=== PATIENT | male | born 1990 | race African-American/Black ===

== ENCOUNTER 2018-03-14 16:20 | Emergency (ER) | payer OTHER ==
[~2018-03-14] VITALS: Ht 175.3 cm; Wt 90.3 kg
[~2018-03-14 16:20] MED LIST: ORASEP SPRAY30 ML MM
== END 2018-03-14 19:22 | disposition home or self-care (01) ==
LOC: ER 16:20
DX: R51 Headache (principal)

== ENCOUNTER → 2018-04-14 | Emergency (ER) | payer OTHER ==
[~2018-04-14] VITALS: Ht 175.3 cm; Wt 86.2 kg
[~2018-04-14] MED LIST changes: +ZESTRIL5 MG PO
== END | disposition home or self-care (01) ==
LOC: ER 11:58
DX: I16.0 Hypertensive urgency (principal); I10 Essential (primary) hypertension

== ENCOUNTER → 2018-05-03 | Emergency (ER) | payer OTHER ==
[~2018-05-03] VITALS: Ht 175.3 cm; Wt 86.2 kg
== END | disposition home or self-care (01) ==
LOC: ER 06:30
DX: M25.512 Pain in left shoulder (principal); M62.838 Other muscle spasm

== ENCOUNTER 2018-05-28 02:01 | Emergency (ER) | payer OTHER ==
[~2018-05-28] VITALS: Ht 175.3 cm; Wt 81.6 kg
[2018-05-28] MEDS ORDERED: INTESTINEX680 M1 PO (12:10)
== END 2018-05-28 13:26 | disposition home or self-care (01) ==
LOC: ER 02:01
DX: K52.9 Noninfective gastroenteritis and colitis, unspecified (principal)

== ENCOUNTER 2018-06-22 19:53 | Emergency (ER) | payer OTHER ==
[~2018-06-22] VITALS: Ht 172.7 cm; Wt 77.1 kg
[~2018-06-22 19:53] MED LIST changes: +INTESTINEX680 M1 PO
== END 2018-06-22 21:53 | disposition home or self-care (01) ==
LOC: ER 19:53
DX: R51 Headache (principal); B34.9 Viral infection, unspecified

== ENCOUNTER 2018-07-25 12:55 | Emergency (ER) | payer OTHER ==
[~2018-07-25] VITALS: Ht 172.7 cm; Wt 74.4 kg
[2018-07-25] MEDS ORDERED: NORFLEX100MG PO (16:28)
[2018-07-25] MEDS ORDERED: KETO10TA2 PO (16:28)
== END 2018-07-25 18:52 | disposition home or self-care (01) ==
LOC: ER 12:55
DX: M54.5 Low back pain (principal)

== ENCOUNTER 2019-03-14 10:14 | Emergency (ER) | payer OTHER ==
[~2019-03-14] VITALS: Ht 175.3 cm; Wt 71.2 kg
[~2019-03-14 10:14] MED LIST changes: +KETO10TA2 PO; +NORFLEX100MG PO
== END 2019-03-14 12:15 | disposition home or self-care (01) ==
LOC: ER 10:14
DX: G44.209 Tension-type headache, unspecified, not intractable (principal)

== ENCOUNTER 2019-04-08 18:08 | Emergency (ER) | payer OTHER ==
[~2019-04-08] VITALS: Ht 175.3 cm; Wt 71.2 kg
== END 2019-04-08 20:20 | disposition home or self-care (01) ==
LOC: ER 18:08
DX: B33.8 Other specified viral diseases (principal); B96.0 Mycoplasma pneumoniae [M. pneumoniae] as the cause of diseases classified elsewhere

== ENCOUNTER → 2019-06-01 | Emergency (ER) | payer OTHER ==
[~2019-06-01] VITALS: Ht 175.3 cm; Wt 72.6 kg
== END | disposition home or self-care (01) ==
LOC: ER 21:13
DX: S52.592A Other fractures of lower end of left radius, initial encounter for closed fracture (principal); W18.39XA Other fall on same level, initial encounter; Y93.67 Activity, basketball; Y92.310 Basketball court as the place of occurrence of the external cause; Y99.8 Other external cause status

== ENCOUNTER 2020-02-07 10:38 | Emergency (ER) | payer OTHER ==
[~2020-02-07] VITALS: Ht 175.3 cm; Wt 76.2 kg
[2020-02-07] MEDS ORDERED: DICLOFENAC SODI75 MG PO (11:31)
== END 2020-02-07 11:41 | disposition home or self-care (01) ==
LOC: ER 10:38
DX: M77.12 Lateral epicondylitis, left elbow (principal)

== ENCOUNTER 2020-07-05 09:23 | Emergency (ER) | payer OTHER ==
[~2020-07-05] VITALS: Ht 175.3 cm; Wt 81.6 kg
[~2020-07-05 09:23] MED LIST changes: +DICLOFENAC SODI75 MG PO
[2020-07-05] MEDS ORDERED: KETO10TA2 PO (13:20)
[2020-07-05] MEDS ORDERED: MIRALAX510 GM PO (13:20)
== END 2020-07-05 13:27 | disposition home or self-care (01) ==
LOC: ER 09:23
DX: K59.09 Other constipation (principal); R10.31 Right lower quadrant pain; M54.5 Low back pain

== ENCOUNTER 2020-08-12 09:09 | Emergency (ER) | payer OTHER ==
[~2020-08-12] VITALS: Ht 175.3 cm; Wt 81.6 kg
[~2020-08-12 09:09] MED LIST changes: +MIRALAX510 GM PO
[2020-08-12] MEDS ORDERED: LOSARTAN POTASS25 MG PO (13:12)
== END 2020-08-12 13:15 | disposition home or self-care (01) ==
LOC: ER 09:09
DX: R07.89 Other chest pain (principal); I10 Essential (primary) hypertension

== ENCOUNTER 2020-11-13 11:19 | Emergency (ER) | payer OTHER ==
[~2020-11-13] VITALS: Ht 175.3 cm; Wt 88.5 kg
[~2020-11-13 11:19] MED LIST changes: +LOSARTAN POTASS25 MG PO
== END 2020-11-13 17:16 | disposition home or self-care (01) ==
LOC: ER 11:19
DX: K62.5 Hemorrhage of anus and rectum (principal)

== ENCOUNTER 2021-02-27 07:30 | Outpatient (CLI) | payer OTHER | END 2021-02-27 07:44 | disposition home or self-care (01) | LOC: TOM 07:30 | PROVIDERS: ATTEND Internal Medicine Gastroenterology | DX: K62.89 Other specified diseases of anus and rectum (principal); Z12.11 Encounter for screening for malignant neoplasm of colon ==

== ENCOUNTER → 2021-04-21 | Emergency (ER) | payer OTHER ==
[~2021-04-21] VITALS: Ht 175.3 cm; Wt 86.2 kg
== END | disposition left against medical advice (07) ==
LOC: ER 00:56
DX: Z53.21 Procedure and treatment not carried out due to patient leaving prior to being seen by health care provider (principal)

== ENCOUNTER → 2021-04-21 | Emergency (ER) | payer OTHER | END | disposition left against medical advice (07) | LOC: ER 06:42 | DX: Z53.21 Procedure and treatment not carried out due to patient leaving prior to being seen by health care provider (principal) ==

== ENCOUNTER 2021-09-11 12:30 | Emergency (ER) | payer OTHER ==
[~2021-09-11] VITALS: Ht 175.3 cm; Wt 89.8 kg
[2021-09-11] MEDS ORDERED: PEPCID AC20 MG PO (16:38)
[2021-09-11] MEDS ORDERED: CIPRO500 MG PO (16:38)
[2021-09-11] MEDS ORDERED: METRONIDAZOLE500 MG PO (16:38)
[2021-09-11] MEDS ORDERED: LEVSIN0.125 MG PO (16:38)
[2021-09-11] MEDS ORDERED: INTESTINEX680 M1 PO (16:38)
== END 2021-09-11 16:48 | disposition home or self-care (01) ==
LOC: ER 12:30
DX: K52.9 Noninfective gastroenteritis and colitis, unspecified (principal); Z91.013 Allergy to seafood

== ENCOUNTER 2022-01-18 10:58 | Emergency (ER) | payer OTHER ==
[~2022-01-18] VITALS: Ht 175.3 cm; Wt 90.7 kg
[~2022-01-18 10:58] MED LIST changes: +CIPRO500 MG PO; +LEVSIN0.125 MG PO; +METRONIDAZOLE500 MG PO; +PEPCID AC20 MG PO
== END 2022-01-18 14:20 | disposition home or self-care (01) ==
LOC: ER 10:58
DX: E86.0 Dehydration (principal); R19.7 Diarrhea, unspecified; Z91.013 Allergy to seafood; Z20.822 Contact with and (suspected) exposure to COVID-19

== ENCOUNTER → 2023-12-08 | Emergency (ER) | payer OTHER ==
[~2023-12-08] VITALS: Ht 175.3 cm; Wt 83.9 kg
[2023-12-08 17:36] LABS: HEMATOCRIT 41.6 % (39.0-48.0); HEMOGLOBIN 14.3 g/dL (13-16.00); MEAN CELL VOLUME 86.3 fL (80.0-100.00); MEAN CORPUSCULAR HEMOGLOBIN 29.7 pg (27.00-32.0); MEAN CORPUSCULAR HGB CONC 34.4 g/dl (32.0-36.0); PLATELET COUNT 154 K/uL (150-450); RED BLOOD COUNT 4.82 M/uL (4.00-6.00); RED CELL DISTRIBUTION WIDTH 13.2 % (11.5-14.5)
== END | disposition home or self-care (01) ==
LOC: ER 16:02
PROVIDERS: Nurse Practitioner Family
DX: R53.81 Other malaise (principal); Z20.822 Contact with and (suspected) exposure to COVID-19; Z91.013 Allergy to seafood

== ENCOUNTER 2024-01-09 22:04 | Emergency (ER) | payer OTHER ==
[~2024-01-09] VITALS: Ht 175.3 cm; Wt 86.2 kg
[2024-01-09] MEDS ORDERED: KETOROLAC TROMETHAMINE 60 MG VIAL IM ONE (22:30)
== END 2024-01-09 23:13 | disposition home or self-care (01) ==
LOC: ER 22:06
DX: M79.661 Pain in right lower leg (principal); Z91.013 Allergy to seafood

== ENCOUNTER → 2025-01-19 | Emergency (ER) | payer OTHER ==
[~2025-01-19] VITALS: Ht 175.3 cm; Wt 88.5 kg
[2025-01-19 06:02] LABS: ALT/SGPT 61.0 U/L (12-78); AST/SGOT 28.0 U/L (15-37); BILIRUBIN TOTAL 0.37 mg/dL (0.3-1.2); BUN CREA RATIO 15.0 (7.0-25.0); CREATININE SERUM 1.1 mg/dL (0.70-1.30); GFR 76.18; GLOBULINA 3.5 G/DL (2.4-3.5); GLUCOSE FASTING 96.0 mg/dL (65-100); OSMOLALITY SERUM 282.0 MOSM/KG (275-295)
[2025-01-19 06:14] LABS: BASO % 0.6 % (0.1-1.2); EOS # 0.17 (0.04-0.54); EOS % 3.4 % (0.7-7.0); LYMPH # 1.38 (1.18-3.74); LYMPH % 27.8 % (19.3-53.1); MEAN PLATELET VOLUME 10.90 fl (9.4-12.4); MONO # 0.48 (0.24-0.82); MONO % 9.7 % (4.7-12.5); NEUT # 2.89 (1.56-6.13); NEUT % 58.3 % (34.0-71.1); RED CELL DISTRIBUTION WIDTH 11.6 % (11.6-14.4)
== END | disposition left against medical advice (07) ==
LOC: ER 02:25
PROVIDERS: Preventive Medicine Public Health & General Preventive Medicine
DX: R07.89 Other chest pain (principal); Z91.013 Allergy to seafood